=== PATIENT | female | born 1965 | race Caucasian/White ===

== ENCOUNTER 2017-01-08 07:20 | Observation (INO) | payer OTHER ==
[~2017-01-08] VITALS: Ht 160 cm; Wt 70.5 kg
[2017-01-08] MEDS ORDERED: LACTATED RINGERS 1,000 ML IV SCH (07:58)
[2017-01-08] MEDS ORDERED: NONE PER PT (07:59)
[2017-01-08] MEDS ORDERED: MIDAZOLAM 1 MG/ML, 2ML ONE (08:28)
[2017-01-08] MEDS ORDERED: FENTANYL PF 250 MCG/5ML ONE (08:28)
[2017-01-08 08:34] VITALS: BP 110/72
[2017-01-08] MEDS ORDERED: GLYCOPYRROLATE 0.2MG/1ML ONE (09:05)
[2017-01-08] MEDS ORDERED: PROPOFOL 10 MG/ML, 20ML ONE (09:05)
[2017-01-08] MEDS ORDERED: DEXAMETHASONE 4 MG/ML, 1ML ONE (09:05)
[2017-01-08] MEDS ORDERED: ROCURONIUM 10 MG/ML ONE (09:05)
[2017-01-08] MEDS ORDERED: NEOSTIGMINE 1 MG/ML, 10ML ONE (09:05)
[2017-01-08] MEDS ORDERED: CEFAZOLIN 1,000 MG ONE (09:05)
[2017-01-08] MEDS ORDERED: ONDANSETRON 2MG/ML, 2ML ONE (09:05)
[2017-01-08] MEDS ORDERED: BUPIVACAINE/PF-EPI 0.5% 1:200K ONE (09:10)
[2017-01-08] MEDS ORDERED: PROMETHAZINE 25 MG/ML, 1ML IV PRN (10:00)
[2017-01-08] MEDS ORDERED: MIDAZOLAM 1 MG/ML, 2ML IV PRN (10:00)
[2017-01-08] MEDS ORDERED: ALBUTEROL/IPRATROPIUM 2.5MG/0.5MG, 3 ML NPPB PRN (10:00)
[2017-01-08] MEDS ORDERED: OXYcodone 5 MG/5 ML ORAL.SOL UDC PO PRN (10:00)
[2017-01-08] MEDS ORDERED: HYDROmorphone 1 MG/ML, 1ML IV PRN (10:00)
[2017-01-08] MEDS ORDERED: ONDANSETRON 2MG/ML, 2ML IVPush PRN ×2 (10:00→17:30)
[2017-01-08] MEDS ORDERED: LABETALOL 5MG/ML, 20ML IV PRN (10:00)
[2017-01-08] MEDS ORDERED: hydrALAzine 20 MG/ML, 1ML IV PRN (10:00)
[2017-01-08] MEDS ORDERED: ACETAMINOPHEN 325 MG TABLET PO PRN (10:00)
[2017-01-08] MEDS ORDERED: MEPERIDINE/PF 25MG/0.5ML IVPush PRN (10:00)
[2017-01-08] MEDS ORDERED: OXYcodone 5 MG/5 ML ORAL.SOL UDC ONE (10:49)
[2017-01-08] MEDS ORDERED: ACETAMINOPHEN 650 MG/20.3 ML UDC ONE (10:50)
[2017-01-08] MEDS ORDERED: FENTANYL PF 100 MCG/2ML ONE (10:51)
[2017-01-08] MEDS ORDERED: ACETAMINOPHEN 325 MG/10.15 ML UDC ONE (10:51)
[2017-01-08] MEDS: FENTANYL PF 100 MCG/2ML IV PRN ×2 (10:54→11:18)
[2017-01-08] MEDS ORDERED: MORPHINE SULFATE 4 MG/ML, 1ML ONE (12:15)
[2017-01-08] MEDS ORDERED: morphine SULFATE/PF 0.5 MG/ML, 10ML IV ONE (13:30)
[2017-01-08] MEDS ORDERED: ONDANSETRON ODT 4 MG ONE (16:03)
[2017-01-08] MEDS: MORPHINE SULFATE 4 MG/ML, 1ML IV PRN ×2 (18:39→19:55)
[2017-01-08 18:41] LABS: BLOOD UREA NITROGEN 16 mg/dL (7-18)
[2017-01-08 19:32] VITALS: BP 102/57
[2017-01-08] MEDS ORDERED: HYDROcodone/APAP 5/325 TABLET PO PRN (21:00)
[2017-01-08 23:46] VITALS: BP 101/62
[2017-01-08] MEDS: D5%-0.45NACL+KCL 20MEQ 1,000 ML IV SCH (23:49)
[2017-01-09 03:28] VITALS: BP 92/55
[2017-01-09] MEDS: MORPHINE SULFATE 4 MG/ML, 1ML IV PRN (03:45)
[2017-01-09] MEDS ORDERED: HYDR-882 PO (06:09)
[2017-01-09] MEDS ORDERED: ONDA4TAB7 PO (06:10)
[2017-01-09] MEDS: D5%-0.45NACL+KCL 20MEQ 1,000 ML IV SCH ×2 (06:15→10:06)
[2017-01-09 08:22] VITALS: BP 91/57
[2017-01-09 13:28] VITALS: BP 91/58
== END 2017-01-09 14:07 | disposition home or self-care (01) ==
LOC: OUT 07:20 → ORIP 17:18 → 4NOR 18:16 → DCLOUNGE 01-09 13:51
PROVIDERS: ADMIT Surgery; ATTEND Surgery
DX: K80.10 Calculus of gallbladder with chronic cholecystitis without obstruction (principal); K82.8 Other specified diseases of gallbladder
CPT/HCPCS: 36415; 47562; 80069; 83735; 85014; 85018; 85025; 88304; 96374; 96375; 96376; G0378; J0690; J1100; J2250; J2274; J2405; J2704; J2710; J3010; J3480; J7120; J3490